=== PATIENT | female | born 1980 | race American Indian/Alaskan Native ===

== ENCOUNTER 2017-08-04 13:11 | Emergency (ER) | payer MEDICAID ==
[2017-08-04] MEDS ORDERED: NACL 0.9% 1000 ML 1,000 ML IV ONE (13:24)
[2017-08-04 14:10] LABS: Basophils % (Auto) 0.8 % (0.0-1.8); Eosinophils % (Auto) 0.4 % (0.0-4.3); Hematocrit 37.5 % (30.3-42.9); Hemoglobin 12.8 gm/dl (10.1-14.3); Lymphocytes # (Auto) 1.1 K/mm3 (1.2-5.4); Lymphocytes % (Auto) 21.4 % (13.4-35.0); Mean Corpuscular HGB Conc 34 % (30-34); Mean Corpuscular Hemoglobin 32 pg (28-32); Mean Corpuscular Volume 92 fl (79-97); Monocytes # (Auto) 0.5 K/mm3 (0.0-0.8); Monocytes % (Auto) 10.3 % (0.0-7.3); Platelet Count 244 K/mm3 (140-440); Red Blood Count 4.07 M/mm3 (3.65-5.03)
[2017-08-04 14:20] LABS: INR 0.89 (0.87-1.13)
[2017-08-04 14:21] LABS: Partial Thromboplastin Time 35.7 Sec. (24.2-36.6)
[2017-08-04 14:47] LABS: Alanine Aminotransferase 7 units/L (7-56); BUN/Creatinine Ratio 26; Blood Urea Nitrogen 13 mg/dL (7-17); Calcium 8.7 mg/dL (8.4-10.2); Hemolysis Index 9; Lipase 30 units/L (13-60)
[2017-08-04 15:15] LABS: Bilirubin,Urine NEG (Negative); Blood,Urine NEG (Negative); Color,Urine Yellow (Yellow); Mucus,Urine FEW /HPF; Protein,Urine <15 mg/dL mg/dL (Negative); Urobilinogen,Urine < 2.0 mg/dL (<2.0)
[2017-08-04 15:17] LABS: HCG Qualitative,Urine Negative (Negative)
[2017-08-04 18:39] VITALS: BP 111/65
[2017-08-04] MEDS ORDERED: ANTIVERT PO ONE (19:01)
--- NOTE | 2017-08-04 19:27 | Emergency Department Report ---
HPI - General Chief Complaint: Abdominal Pain Time Seen by Provider: 08/04/17 18:50 - HPI HPI: Room 3 The patient is a 37-year-old female presenting with a chief complaint dizziness. The patient states for approximately one week she's had lightheadedness and feeling as though the room spinning. The patient states she 's felt weak and could not stand for long periods of time. Patient denies any history of fever. Patient denies previous episodes of same. Patient states she 's had 2 episodes of vomiting. The patient states movement usually brings on her symptoms. The patient states this morning her stool looked black but she believes it was secondary to consuming spicy food Location: Head, see above Duration: [See above] Quality: Vertigo Severity: Moderate Modifying factors: [see above] Context: [see above] Mode of transportation: Unknown ED Past Medical Hx - Past Medical History Previous Medical History?: No Additional medical history: hx of peptic ulcer. - Surgical History Past Surgical History?: No - Family History Family history: no significant - Social History Smoking Status: Never Smoker Substance Use Type: None (denies illicit drug use) - Medications Home Medications: Home Medications Medication Instructions Recorded Confirmed Last Taken Type Meclizine [Antivert] 25 mg PO TID PRN #20 tablet 08/04/17 Unknown Rx Ondansetron [Zofran ODT TAB] 8 mg PO Q8HR #20 tab.rapdis 08/04/17 Unknown Rx ED Review of Systems ROS: Stated complaint: WEAKNESS/DARK STOOL Other details as noted in HPI Constitutional: weakness Endocrine: other (weakness) Gastrointestinal: nausea, vomiting, melena Neurological: vertigo Physical Exam - Physical Exam Vital Signs: Vital Signs 08/04/17 08/04/17 08/04/17 13:16 17:04 17:10 Temperature 98.7 F Pulse Rate 76 69 Respiratory 16 18 14 Rate Blood Pressure 101/56 O2 Sat by Pulse 100 Oximetry 08/04/17 18:01 Temperature Pulse Rate 63 Respiratory 12 Rate Blood Pressure 111/65 O2 Sat by Pulse 100 Oximetry Physical Exam: GENERAL: The patient is well-developed well-nourished female lying on stretcher not appearing to be in acute distress. [] HEENT: Normocephalic. Atraumatic. Extraocular motions are intact. Patient has moist mucous membranes. NECK: Supple. Trachea midline CHEST/LUNGS: Clear to auscultation. There is no respiratory distress noted. HEART/CARDIOVASCULAR: Regular. There is no tachycardia. There is no gallop rub or murmur. ABDOMEN: Abdomen is soft, nontender. Patient has normal bowel sounds. There is no abdominal distention. SKIN: There is no rash. There is no edema. There is no diaphoresis. NEURO: The patient is awake, alert, and oriented. The patient is cooperative. The patient has no focal neurologic deficits. The patient has normal speech. Cranial nerves II through XII grossly intact, no drift. No dysmetria noted with finger to nose bilaterally MUSCULOSKELETAL: There is no evidence of acute injury. RECTAL: Guaiac negative ED Course Vital Signs 08/04/17 08/04/17 08/04/17 13:16 17:04 17:10 Temperature 98.7 F Pulse Rate 76 69 Respiratory 16 18 14 Rate Blood Pressure 101/56 O2 Sat by Pulse 100 Oximetry 08/04/17 18:01 Temperature Pulse Rate 63 Respiratory 12 Rate Blood Pressure 111/65 O2 Sat by Pulse 100 Oximetry ED Medical Decision Making - Lab Data Result diagrams: 08/04/17 13:37 08/04/17 13:37 Laboratory Tests 08/04/17 08/04/17 08/04/17 13:37 13:37 13:37 WBC 5.3 RBC 4.07 Hgb 12.8 Hct 37.5 MCV 92 MCH 32 MCHC 34 RDW 13.0 L Plt Count 244 Lymph % (Auto) 21.4 [place]bour % (Auto) 10.3 H Eos % (Auto) 0.4 Baso % (Auto) 0.8 Lymph # 1.1 L [place] # 0.5 Eos # 0.0 Baso # 0.0 Seg Neutrophils % 67.1 Seg Neutrophils # 3.5 PT 12.5 INR 0.89 APTT 35.7 Sodium 137 Potassium 4.2 Chloride 102.5 Carbon Dioxide 25 Anion Gap 14 BUN 13 Creatinine 0.5 L Estimated GFR > 60 BUN/Creatinine Ratio 26 Glucose 85 Calcium 8.7 Total Bilirubin 0.60 AST 13 ALT 7 Alkaline Phosphatase 37 Total Protein 7.2 Albumin 4.0 Albumin/Globulin Ratio 1.3 Lipase 30 TSH Free T4 Urine Color Urine Turbidity Urine pH Ur Specific [place] Urine Protein Urine Glucose (UA) Urine Ketones Urine Blood Urine Nitrite Urine Bilirubin Urine Urobilinogen Ur Leukocyte Esterase Urine WBC (Auto) Urine RBC (Auto) U Epithel Cells (Auto) Urine Mucus Urine HCG, Qual Blood Type Antibody Screen 08/04/17 08/04/17 08/04/17 13:37 13:37 14:50 WBC RBC Hgb Hct MCV MCH MCHC RDW Plt Count Lymph % (Auto) [place] % (Auto) Eos % (Auto) Baso % (Auto) Lymph # [place] # Eos # Baso # Seg Neutrophils % Seg Neutrophils # PT INR APTT Sodium Potassium Chloride Carbon Dioxide Anion Gap BUN Creatinine Estimated GFR BUN/Creatinine Ratio Glucose Calcium Total Bilirubin AST ALT Alkaline Phosphatase Total Protein Albumin Albumin/Globulin Ratio Lipase TSH 0.945 Free T4 1.07 Urine Color Yellow Urine Turbidity Clear Urine pH 6.0 Ur Specific [place] 1.018 Urine Protein <15 mg/dl Urine Glucose (UA) Neg Urine Ketones Neg Urine Blood Neg Urine Nitrite Neg Urine Bilirubin Neg Urine Urobilinogen < 2.0 Ur Leukocyte Esterase Neg Urine WBC (Auto) 1.0 Urine RBC (Auto) 1.0 U Epithel Cells (Auto) 3.0 Urine Mucus Few Urine HCG, Qual Negative Blood Type O POSITIVE Antibody Screen Negative - EKG Data -: EKG Interpreted by De EKG shows normal: sinus rhythm Rate: normal - EKG Data When compared to previous EKG there are: previous EKG unavailable Interpretation: other (no ischemic changes seen) - Radiology Data Radiology results: report reviewed (CT head), image reviewed (CT head) CT head (read by radiologist) -normal examination - Differential Diagnosis vertigo, GI bleed, hypothyroidism, electrolyte abnormality Critical care attestation.: If time is entered above; I have spent that time in minutes in the direct care of this critically ill patient, excluding procedure time. ED Disposition Clinical Impression: Vertigo Disposition: DC-01 TO HOME OR SELFCARE Is pt being admited?: No Does the pt Need Aspirin: No Condition: Stable Instructions: Abdominal Pain (ED), Vertigo (ED) Additional Instructions: Return to the emergency department immediately should you develop worsening symptoms, fever, inability to tolerate food or liquid or any other concerns. Prescriptions: Meclizine [Antivert] 25 mg PO TID PRN #20 tablet PRN Reason: Vertigo Ondansetron [Zofran ODT TAB] 8 mg PO Q8HR #20 tab.rapdis Referrals: RADHA ELIZABETH MD [Staff Physician] - 3-5 Days ( is a neurologist. Please follow-up with him for further evaluation) JAVI MCKEE MD [Staff Physician] - 3-5 Days (Dr. Mckee is an ear nose and throat doctor (assistant operations manager). Please follow up with her for further evaluation) Time of Disposition: 20:38
[2017-08-04 19:37] LABS: Free T4 (Free Thyroxine) 1.07 ng/dL (0.76-1.46)
--- NOTE | 2017-08-04 20:15 | Cat Scan Report ---
FINAL REPORT PROCEDURE: CT HEAD/BRAIN WO CON TECHNIQUE: Computerized tomography of the head was performed without contrast material. HISTORY: vertigo COMPARISON: No prior studies are available for comparison. FINDINGS: Skull and scalp: Normal. Paranasal sinuses: Normal. Ventricles and subarachnoid spaces: Normal. Cerebrum: No evidence of hemorrhage, acute infarction or mass . Cerebellum and brainstem: No evidence of hemorrhage, acute infarction or mass. Vasculature: Normal. Comments: None. IMPRESSION: Normal Examination
[2017-08-04] MEDS ORDERED: ZOFRAN IV ONE (20:35)
== END 2017-08-04 21:03 | disposition home or self-care (01) ==
LOC: ED 13:11
DX: R42 Dizziness and giddiness (principal)
CPT/HCPCS: 36415; 70450; 80053; 81001; 81025; 82271; 83690; 84439; 84443; 85025; 85610; 85730; 86850; 86900; 86901; 96361; 96374; 99285; J2405; J7030; 93005; 93010

== ENCOUNTER 2018-12-22 21:28 | Emergency (ER) | payer MEDICAID | END 2018-12-22 21:41 | disposition left against medical advice (07) | LOC: ED 21:28 | DX: R10.9 Unspecified abdominal pain (principal); Z53.21 Procedure and treatment not carried out due to patient leaving prior to being seen by health care provider ==

== ENCOUNTER 2018-12-23 04:06 | Emergency (ER) | payer MEDICAID ==
[2018-12-23 04:39] LABS: Basophils % (Auto) 0.6 % (0.0-1.8); Eosinophils % (Auto) 0.5 % (0.0-4.3); Hematocrit 37.6 % (30.3-42.9); Hemoglobin 12.6 gm/dl (10.1-14.3); Lymphocytes # (Auto) 1.6 K/mm3 (1.2-5.4); Lymphocytes % (Auto) 27.6 % (13.4-35.0); Mean Corpuscular HGB Conc 34 % (30-34); Mean Corpuscular Volume 94 fl (79-97); Monocytes # (Auto) 0.6 K/mm3 (0.0-0.8); Monocytes % (Auto) 11.2 % (0.0-7.3); Platelet Count 275 K/mm3 (140-440); Red Blood Count 3.98 M/mm3 (3.65-5.03); Red Cell Distribution Width 13.6 % (13.2-15.2)
[2018-12-23 05:02] LABS: Alanine Aminotransferase 7 units/L (7-56); Albumin 4.1 g/dL (3.9-5); BUN/Creatinine Ratio 21; Blood Urea Nitrogen 15 mg/dL (7-17); Calcium 8.8 mg/dL (8.4-10.2); Hemolysis Index 3
--- NOTE | 2018-12-23 05:32 | Emergency Department Report ---
ED Abdominal Pain HPI - General Chief Complaint: Abdominal Pain Stated Complaint: STOMACH AND BACK PAIN NAUSEA Time Seen by Provider: 12/23/18 05:09 Source: patient Mode of arrival: Ambulatory Limitations: No Limitations - History of Present Illness Initial Comments: patient is a 38-year-old female presents emergency room with complaints of epigastric and left upper quadrant pain that began 4 days ago. she describes the pain as intermittent sharp pain. she states she has occasional nausea. denies any vomiting, diarrhea, fever, urinary symptoms, chills, any other symptoms. Denies ever having in the past. she states that her last menstrual period was December 12. denies any past medical history or allergies medications. she states she had a normal BM yesterday. - Related Data Previous Rx's Medication Instructions Recorded Last Taken Type Meclizine [Antivert] 25 mg PO TID PRN #20 tablet 08/04/17 Unknown Rx Ondansetron [Zofran ODT TAB] 8 mg PO Q8HR #20 tab.rapdis 08/04/17 Unknown Rx Famotidine [Pepcid] 40 mg PO QHS #30 tablet 12/23/18 Unknown Rx Sucralfate [Carafate] 1 gm PO ACHS 7 Days #21 tablet 12/23/18 Unknown Rx Allergies Allergy/AdvReac Type Severity Reaction Status Date / Time No Known Allergies Allergy Unverified 08/04/17 13:24 ED Review of Systems ROS: Stated complaint: STOMACH AND BACK PAIN NAUSEA Other details as noted in HPI Comment: All other systems reviewed and negative ED Past Medical Hx - Past Medical History Previous Medical History?: Yes Additional medical history: hx of peptic ulcer. - Surgical History Past Surgical History?: No - Social History Smoking Status: Never Smoker Substance Use Type: None - Medications Home Medications: Home Medications Medication Instructions Recorded Confirmed Last Taken Type Meclizine [Antivert] 25 mg PO TID PRN #20 tablet 08/04/17 Unknown Rx Ondansetron [Zofran ODT TAB] 8 mg PO Q8HR #20 tab.rapdis 08/04/17 Unknown Rx Famotidine [Pepcid] 40 mg PO QHS #30 tablet 12/23/18 Unknown Rx Sucralfate [Carafate] 1 gm PO ACHS 7 Days #21 tablet 12/23/18 Unknown Rx ED Physical Exam - General Limitations: No Limitations General appearance: alert, in no apparent distress - Head Head exam: Present: atraumatic, normocephalic - Eye Eye exam: Present: normal appearance - ENT ENT exam: Present: mucous membranes moist - Respiratory Respiratory exam: Present: normal lung sounds bilaterally. Absent: respiratory distress, wheezes, rales, rhonchi, stridor, chest wall tenderness, accessory muscle use, decreased breath sounds, prolonged expiratory - Cardiovascular Cardiovascular Exam: Present: regular rate, normal rhythm, normal heart sounds. Absent: systolic murmur, diastolic murmur, rubs, gallop - GI/Abdominal GI/Abdominal exam: Present: soft, tenderness (mild LUQ), normal bowel sounds. Absent: distended, guarding, rebound, rigid - Neurological Exam Neurological exam: Present: alert, oriented X3 - Psychiatric Psychiatric exam: Present: normal affect, normal mood - Skin Skin exam: Present: warm, dry, intact ED Course Vital Signs 12/23/18 12/23/18 12/23/18 04:07 04:09 06:05 Temperature 98 F 98.0 F Pulse Rate 74 71 Respiratory 18 16 18 Rate Blood Pressure 117/79 Blood Pressure [Right] O2 Sat by Pulse 100 100 Oximetry 12/23/18 06:55 Temperature Pulse Rate 68 Respiratory 18 Rate Blood Pressure Blood Pressure 117/72 [Right] O2 Sat by Pulse 99 Oximetry ED Medical Decision Making - Lab Data Result diagrams: 12/23/18 04:24 12/23/18 04:24 - Medical Decision Making patient is a 38-year-old female presents emergency room with complaints of epigastric and left upper quadrant pain that began 4 days ago. she describes the pain as intermittent sharp pain. she states she has occasional nausea. denies any vomiting, diarrhea, fever, urinary symptoms, chills, any other symptoms. Denies ever having in the past. she states that her last menstrual period was December 12. denies any past medical history or allergies medications. she states she had a normal BM yesterday. VSS. on exam: mild LUQ pain. labs are normal. UA without evidence of UTI. pt given 1L IVF, protonix, zofran, and GI cocktail. pts symptoms completed resolved. pt given prescription for carafate and pepcid. advised pt to please take medication as prescribed. Please follow the diet for acid reflux and ulcers. please increase your water intake. follow up with a GI doctor in the next 2-3 days. Return to the emergency room for any new or worsening symptoms. - Differential Diagnosis GERD, PUD, gastritis, pancreatitis, gas pain, hiatal hernia, h pylori Critical care attestation.: If time is entered above; I have spent that time in minutes in the direct care of this critically ill patient, excluding procedure time. ED Disposition Clinical Impression: Nausea Abdominal pain Qualifiers: Abdominal location: left upper quadrant Qualified Code(s): R10.12 - Left upper quadrant pain Disposition: DC- TO HOME OR SELFCARE Is pt being admited?: No Does the pt Need Aspirin: No Condition: Stable Instructions: Diet for Ulcers and Gastritis (ED), Abdominal Pain (ED) Additional Instructions: Please take medication as prescribed. Please follow the diet for acid reflux and ulcers. please increase your water intake. follow up with a GI doctor in the next 2-3 days. Return to the emergency room for any new or worsening symptoms. Prescriptions: Famotidine [Pepcid] 40 mg PO QHS #30 tablet Sucralfate [Carafate] 1 gm PO ACHS 7 Days #21 tablet Referrals: PRIMARY CARE [Primary Care Provider] - 2-3 Days [facility] [Provider Group] - 2-3 Days Time of Disposition: 06:32 Print Language: GABONESE
[2018-12-23] MEDS ORDERED: ALUM-MAG HYDROX-SIMETH 200-200-20MG/5ML PO ONE (05:33)
[2018-12-23] MEDS ORDERED: PROTONIX IV ONE (05:33)
[2018-12-23] MEDS ORDERED: ZOFRAN IV ONE (05:33)
[2018-12-23] MEDS ORDERED: LIDOCAINE VISCOUS 2% PO ONE (05:33)
[2018-12-23] MEDS ORDERED: BENTYL PO ONE (05:33)
[2018-12-23] MEDS ORDERED: NACL 0.9% 1000 ML 1,000 ML IV ONE (05:33)
[2018-12-23 05:43] LABS: Bilirubin,Urine NEG (Negative); Blood,Urine NEG (Negative); Color,Urine Yellow (Yellow); Mucus,Urine 3+ /HPF; Protein,Urine <15 mg/dL mg/dL (Negative)
[2018-12-23 06:56] VITALS: BP 117/72
== END 2018-12-23 06:56 | disposition home or self-care (01) ==
LOC: ED 04:06
DX: R10.12 Left upper quadrant pain (principal); R10.13 Epigastric pain; R11.0 Nausea; Z87.19 Personal history of other diseases of the digestive system; Z79.899 Other long term (current) drug therapy
CPT/HCPCS: 36415; 80053; 81001; 84703; 85025; 96374; 96375; 99283; C9113; J2405; J7030